=== PATIENT | female | born 1975 | race Caucasian/White ===

== ENCOUNTER 2021-02-05 08:03 | Emergency (ER) | payer OTHER ==
[2021-02-05] MEDS ORDERED: ZOFRAN4 MG PO (08:39)
[2021-02-05] MEDS ORDERED: FLONASE 0.05% N16 GM (08:39)
[2021-02-05] MEDS ORDERED: MEDROL DOSEPAK 24 MG PO (08:39)
[2021-02-05] MEDS ORDERED: DELSYM30 MG/5 ML PO (08:39)
== END 2021-02-05 08:52 | disposition home or self-care (01) ==
LOC: ER1 08:03
DX: U07.1 COVID-19 (principal); M06.9 Rheumatoid arthritis, unspecified; Z88.0 Allergy status to penicillin
CPT/HCPCS: 96372; 99283; J1100; U0003